=== PATIENT | female | born 1955 | race African-American/Black ===

== ENCOUNTER → 2018-02-21 | Outpatient (CLI) | payer MEDICARE ==
[~2018-02-21] MED LIST: LISI2.5T PO; METF500T4 PO
[2018-02-21 09:59] LABS: INTERNATIONAL NORMALIZED RATIO 0.97 (0.93-1.1); PROTHROMBIN TIME 10.1 Seconds (9.6-11.5)
[2018-02-21 10:02] LABS: ALANINE AMINOTRANSFERASE 24 U/L (12-78); ALBUMIN 3.7 g/dL (3.4-5.0); ANION GAP 4 mmol/L (5-15); CALCIUM 8.7 mg/dL (8.5-10.1); CHLORIDE 111 mmol/L (98-107)
[2018-02-21 10:04] LABS: ALKALINE PHOSPHATASE 129 U/L (45-117); BILIRUBIN,TOTAL 0.5 mg/dL (0.2-1.0); TOTAL PROTEIN 7.5 g/dL (6.4-8.2)
[2018-02-21 10:05] LABS: MICROSCOPIC AUTO
[2018-02-21 10:07] LABS: BASOPHILS # (AUTO) 0.06 x10^3/uL (0-0.1); BASOPHILS % (AUTO) 1 % (0-1); EOSINOPHILS % (AUTO) 4 % (1-7); LYMPHOCYTES # (AUTO) 2.53 x10^3/uL (1-3.4); LYMPHOCYTES % (AUTO) 32 % (22-44); MD NO; MEAN CORPUSCULAR HEMOGLOBIN 27.3 pg (27.0-34.8); MEAN CORPUSCULAR HGB CONC 32.7 g/dL (32.4-35.8); MEAN CORPUSCULAR VOLUME 83.3 fL (80-100); MEAN PLATELET VOLUME 10.1 fL (7.4-10.4); MONOCYTES # (AUTO) 0.31 x10^3/uL (0.2-0.8); MONOCYTES % (AUTO) 4 % (2-9); NEUTROPHILS # (AUTO) 4.64 x10^3/uL (1.8-6.8); NEUTROPHILS % (AUTO) 59 % (42-75); PLATELET COUNT 224 x10^3/uL (130-400); RED CELL DISTRIBUTION WIDTH 14.2 % (9.6-15.2)
[2018-02-21 10:45] LABS: CULTURE INDICATED? YES
== END | disposition home or self-care (01) ==
LOC: STAR 08:45
PROVIDERS: ATTEND Orthopaedic Surgery Orthopaedic Surgery of the Spine
DX: Z01.818 Encounter for other preprocedural examination (principal); R94.31 Abnormal electrocardiogram [ECG] [EKG]
CPT/HCPCS: 36415; 71046; 80053; 81001; 85025; 85610; 85730; 87086; 93005

== ENCOUNTER 2018-03-07 07:30 | Inpatient (IN) | payer MEDICARE ==
[~2018-03-07] VITALS: Ht 157.5 cm; Wt 87.8 kg
[~2018-03-07 07:30] MED LIST changes: +BUPIVACAINE/PF 0.25% ONE; +EPINEPHRINE 1 MG/ML, 1ML ONE; +LIDOCAINE/PF 0.5% ,50ML ONE; +THROMBIN 5,000 UNIT VIAL TP ONE; +VANCOMYCIN 1,000 MG ONE
[2018-03-07] MEDS ORDERED: FENTANYL PF 100 MCG/2ML ONE ×2 (09:15→13:51)
[2018-03-07] MEDS ORDERED: MIDAZOLAM 1 MG/ML, 2ML ONE (09:15)
[2018-03-07] MEDS ORDERED: ONDANSETRON ODT 8 MG PO ONE (09:30)
[2018-03-07] MEDS ORDERED: OXYcodone IR 5MG TABLET PO ONE (09:30)
[2018-03-07] MEDS ORDERED: DIAZEPAM 5 MG TABLET PO ONE (09:30)
[2018-03-07] MEDS ORDERED: ACETAMINOPHEN 500 MG TABLET PO ONE (09:30)
[2018-03-07] MEDS ORDERED: GABAPENTIN 300 MG CAPSULE PO ONE (09:30)
[2018-03-07] MEDS ORDERED: FAMOTIDINE 20 MG TABLET PO ONE (09:30)
[2018-03-07] MEDS ORDERED: LACTATED RINGERS 1,000 ML IV SCH (09:34)
[2018-03-07] MEDS ORDERED: LIDOCAINE/PF 0.5% ,50ML INFIL ONE (11:16)
[2018-03-07] MEDS ORDERED: VANCOMYCIN 1,000 MG ONE (11:50)
[2018-03-07] MEDS ORDERED: DEXAMETHASONE 4 MG/ML, 1ML ONE (12:34)
[2018-03-07] MEDS ORDERED: GLYCOPYRROLATE 0.2MG/1ML, 5ML ONE (12:34)
[2018-03-07] MEDS ORDERED: NEOSTIGMINE 1 MG/ML, 10ML ONE (12:34)
[2018-03-07] MEDS ORDERED: SUCCINYLCHOLINE 20 MG/ML, 10ML ONE (12:34)
[2018-03-07] MEDS ORDERED: CEFAZOLIN 1,000 MG ONE (12:34)
[2018-03-07] MEDS ORDERED: PROPOFOL 10 MG/ML, 20ML ONE (12:34)
[2018-03-07] MEDS ORDERED: HALOPERIDOL 5 MG/ML IV PRN (13:00)
[2018-03-07] MEDS ORDERED: LABETALOL 5MG/ML, 20ML IV PRN ×2 (13:00→19:00)
[2018-03-07] MEDS ORDERED: ALBUTEROL SULFATE 2.5 MG/3 ML NPPB PRN (13:00)
[2018-03-07] MEDS ORDERED: HYDROcodone/APAP 7.5-325MG/15ML UDC PO PRN (13:00)
[2018-03-07] MEDS ORDERED: PROMETHAZINE 25 MG/ML, 1ML IV PRN (13:00)
[2018-03-07] MEDS ORDERED: DIAZEPAM 5 MG/ML, 2ML IVPush PRN (13:00)
[2018-03-07] MEDS ORDERED: ONDANSETRON ODT 8 MG PO PRN (13:00)
[2018-03-07] MEDS ORDERED: EPHEDRINE 50 MG/ML, 1ML IVPush PRN (13:00)
[2018-03-07] MEDS ORDERED: OXYcodone 5 MG/5 ML ORAL.SOL UDC PO PRN (13:00)
[2018-03-07] MEDS ORDERED: HYDROmorphone 1 MG/ML, 1ML IV PRN (13:00)
[2018-03-07] MEDS ORDERED: MEPERIDINE/PF 25MG/0.5ML IVPush PRN (13:00)
[2018-03-07] MEDS ORDERED: MIDAZOLAM 1 MG/ML, 2ML IV PRN (13:00)
[2018-03-07] MEDS ORDERED: hydrALAzine 20 MG/ML, 1ML IV PRN (13:00)
[2018-03-07] MEDS: FENTANYL PF 100 MCG/2ML IV PRN ×2 (13:53→14:10)
[2018-03-07] MEDS ORDERED: ALBUTEROL SULFATE 2.5 MG/3 ML ONE (14:06)
[2018-03-07] MEDS ORDERED: HALOPERIDOL 5 MG/ML ONE (14:23)
[2018-03-07] MEDS ORDERED: hydrALAzine 20 MG/ML, 1ML ONE (14:26)
[2018-03-07] MEDS ORDERED: ROCURONIUM 10 MG/ML,10ML ONE (16:18)
[2018-03-07] MEDS ORDERED: ONDANSETRON 2MG/ML, 2ML IV PRN (19:00)
[2018-03-07] MEDS ORDERED: morphine SULFATE 10 MG/ML, 1ML IV PRN (19:00)
[2018-03-07] MEDS ORDERED: MAGNESIUM HYDROXIDE 8%, 30ML UDC PO PRN (19:00)
[2018-03-07] MEDS ORDERED: PROMETHAZINE 25 MG/ML, 1ML IM PRN (19:00)
[2018-03-07] MEDS ORDERED: NS + 20MEQ KCL 1,000 ML IV SCH (19:00)
[2018-03-07] MEDS ORDERED: BISACODYL 10 MG SUPP PR PRN (19:00)
[2018-03-07] MEDS: CEFAZOLIN 1,000 MG in SODIUM CHLORIDE 0.9% 50 ML IVPB SCH (20:22)
[2018-03-07 22:25] VITALS: BP 147/69
[2018-03-07 23:31] VITALS: BP 111/61
[2018-03-08 02:00] VITALS: BP 135/74
[2018-03-08] MEDS: CEFAZOLIN 1,000 MG in SODIUM CHLORIDE 0.9% 50 ML IVPB SCH (03:48)
[2018-03-08 06:01] LABS: BASOPHILS # (AUTO) 0.01 x10^3/uL (0-0.1); BASOPHILS % (AUTO) 0 % (0-1); EOSINOPHILS % (AUTO) 0 % (1-7); LYMPHOCYTES # (AUTO) 1.69 x10^3/uL (1-3.4); LYMPHOCYTES % (AUTO) 12 % (22-44); MD NO; MEAN CORPUSCULAR HEMOGLOBIN 27.2 pg (27.0-34.8); MEAN CORPUSCULAR HGB CONC 32.6 g/dL (32.4-35.8); MEAN CORPUSCULAR VOLUME 83.6 fL (80-100); MONOCYTES # (AUTO) 0.62 x10^3/uL (0.2-0.8); MONOCYTES % (AUTO) 4 % (2-9); NEUTROPHILS # (AUTO) 12.05 x10^3/uL (1.8-6.8); NEUTROPHILS % (AUTO) 84 % (42-75); PLATELET COUNT 207 x10^3/uL (130-400); RED BLOOD COUNT 4.23 x10^6/uL (3.82-5.3); RED CELL DISTRIBUTION WIDTH 13.5 % (9.6-15.2)
[2018-03-08 06:10] LABS: ANION GAP 8 mmol/L (5-15); CALCIUM 8.5 mg/dL (8.5-10.1); CHLORIDE 110 mmol/L (98-107); CREATININE 0.63 mg/dL (0.55-1.02)
[2018-03-08 07:13] VITALS: BP 125/71
[2018-03-08] MEDS: SENNA/DOCUSATE TABLET PO SCH (07:43)
[2018-03-08] MEDS: metFORMIN 500 MG TABLET PO SCH ×2 (07:43→18:22)
[2018-03-08] MEDS: METHOCARBAMOL 500 MG TABLET PO PRN ×2 (07:43→15:52)
[2018-03-08] MEDS: LISINOPRIL 5 MG TABLET PO SCH (07:44)
[2018-03-08] MEDS: NS + 20MEQ KCL 1,000 ML IV SCH ×2 (10:04→20:04)
[2018-03-08] MEDS: HYDROcodone/APAP 5/325 TABLET PO PRN ×3 (10:49→20:27)
[2018-03-08] MEDS: MAGNESIUM HYDROXIDE 8%, 30ML UDC PO SCH (11:49)
[2018-03-08 14:01] VITALS: BP 112/64
[2018-03-08 20:00] VITALS: BP 122/64
[2018-03-09] MEDS: HYDROcodone/APAP 5/325 TABLET PO PRN ×2 (00:50→04:58)
[2018-03-09 02:00] VITALS: BP 105/66
[2018-03-09 04:55] LABS: BASOPHILS # (AUTO) 0.03 x10^3/uL (0-0.1); BASOPHILS % (AUTO) 0 % (0-1); EOSINOPHILS # (AUTO) 0.09 x10^3/uL (0-0.4); EOSINOPHILS % (AUTO) 1 % (1-7); LYMPHOCYTES # (AUTO) 2.89 x10^3/uL (1-3.4); LYMPHOCYTES % (AUTO) 28 % (22-44); MD NO; MEAN CORPUSCULAR HEMOGLOBIN 28.2 pg (27.0-34.8); MEAN CORPUSCULAR HGB CONC 33.4 g/dL (32.4-35.8); MEAN CORPUSCULAR VOLUME 84.3 fL (80-100); MEAN PLATELET VOLUME 10.1 fL (7.4-10.4); MONOCYTES # (AUTO) 0.66 x10^3/uL (0.2-0.8); MONOCYTES % (AUTO) 6 % (2-9); NEUTROPHILS # (AUTO) 6.81 x10^3/uL (1.8-6.8); NEUTROPHILS % (AUTO) 65 % (42-75); PLATELET COUNT 186 x10^3/uL (130-400); RED CELL DISTRIBUTION WIDTH 14.4 % (9.6-15.2)
[2018-03-09 05:03] LABS: ANION GAP 5 mmol/L (5-15); CALCIUM 7.8 mg/dL (8.5-10.1); CHLORIDE 111 mmol/L (98-107)
[2018-03-09] MEDS: NS + 20MEQ KCL 1,000 ML IV SCH ×2 (06:03→16:04)
[2018-03-09] MEDS ORDERED: ONDANSETRON ODT 4 MG ONE (07:37)
[2018-03-09] MEDS: metFORMIN 500 MG TABLET PO SCH ×2 (07:38→17:16)
[2018-03-09] MEDS: METHOCARBAMOL 500 MG TABLET PO PRN ×2 (07:39→14:04)
[2018-03-09] MEDS: SENNA/DOCUSATE TABLET PO SCH (07:39)
[2018-03-09 07:42] VITALS: BP 110/70
[2018-03-09] MEDS: LISINOPRIL 5 MG TABLET PO SCH (07:42)
[2018-03-09 07:54] VITALS: BP 138/77
[2018-03-09] MEDS ORDERED: ONDANSETRON ODT 4 MG PO PRN (08:00)
[2018-03-09] MEDS: HYDROcodone/APAP 10/325 MG TABLET PO PRN ×3 (09:19→17:16)
[2018-03-09] MEDS: MAGNESIUM HYDROXIDE 8%, 30ML UDC PO SCH (09:19)
[2018-03-09] MEDS ORDERED: MAGNESIUM CITRATE 300ML ORAL SOL PO ONE (12:30)
[2018-03-09] MEDS ORDERED: CEPHALEXIN 250 MG CAPSULE ONE ×2 (13:08→21:01)
[2018-03-09] MEDS: CEPHALEXIN 500 MG CAPSULE PO SCH ×2 (13:16→20:30)
[2018-03-09 14:06] VITALS: BP 132/70
[2018-03-09] MEDS ORDERED: OXYC-302 PO (16:51)
[2018-03-09] MEDS ORDERED: METH500T7 PO (16:52)
[2018-03-09] MEDS ORDERED: CEPH-368 PO (16:53)
[2018-03-09] MEDS ORDERED: MAGNESIUM CITRATE 300ML ORAL SOL ONE (16:54)
== END 2018-03-09 21:15 | disposition home health service (06) | DRG 460 ==
LOC: ORIP 08:17 → 4NOR 15:23
PROVIDERS: ADMIT Orthopaedic Surgery Orthopaedic Surgery of the Spine; ATTEND Orthopaedic Surgery Orthopaedic Surgery of the Spine
PROC: 0SG00K1 Fusion of Lumbar Vertebral Joint with Nonautologous Tissue Substitute, Posterior Approach, Posterior Column, Open Approach (ICD-10-PCS; principal; 2018-03-07 10:30)
DX: M48.061 Spinal stenosis, lumbar region without neurogenic claudication (principal); I10 Essential (primary) hypertension; M43.16 Spondylolisthesis, lumbar region
CPT/HCPCS: 36415; 72100; 76001; 80048; 82962; 85025; 94640; C1713; J0171; J0690; J1100; J2001; J2250; J2270; J2704; J2710; J3010; J3370; J3480; J3490; J7613; Q0162; J0330; J0360; J1630; J7120

== ENCOUNTER 2019-01-01 10:30 | Inpatient (IN) | payer MEDICARE, MEDICAID ==
[~2019-01-01] VITALS: Ht 157.5 cm; Wt 76.9 kg
[~2019-01-01 10:30] MED LIST changes: -BUPIVACAINE/PF 0.25% ONE; +CEPH-368 PO; -EPINEPHRINE 1 MG/ML, 1ML ONE; -LIDOCAINE/PF 0.5% ,50ML ONE; +METF500T17 PO; -METF500T4 PO; +METH500T7 PO; +OXYC-302 PO; -THROMBIN 5,000 UNIT VIAL TP ONE; -VANCOMYCIN 1,000 MG ONE
[2019-01-01] MEDS ORDERED: LISI5TAB7 PO (12:23)
[2019-01-01] MEDS ORDERED: METH500T7 PO (12:30)
[2019-01-01 12:53] LABS: MICROSCOPIC NOT IND
[2019-01-01 12:55] LABS: CULTURE INDICATED? NO
[2019-01-01 13:02] LABS: BASOPHILS # (AUTO) 0.03 x10^3/uL (0-0.1); BASOPHILS % (AUTO) 0 % (0-1); EOSINOPHILS # (AUTO) 0.16 x10^3/uL (0-0.4); EOSINOPHILS % (AUTO) 2 % (1-7); LYMPHOCYTES # (AUTO) 2.61 x10^3/uL (1-3.4); LYMPHOCYTES % (AUTO) 34 % (22-44); MD NO; MEAN CORPUSCULAR HEMOGLOBIN 27.6 pg (27.0-34.8); MEAN CORPUSCULAR VOLUME 83.5 fL (80-100); MEAN PLATELET VOLUME 9.6 fL (7.4-10.4); MONOCYTES # (AUTO) 0.35 x10^3/uL (0.2-0.8); MONOCYTES % (AUTO) 5 % (2-9); NEUTROPHILS # (AUTO) 4.59 x10^3/uL (1.8-6.8); NEUTROPHILS % (AUTO) 59 % (42-75); PLATELET COUNT 293 x10^3/uL (130-400); RED BLOOD COUNT 5.52 x10^6/uL (3.82-5.3); RED CELL DISTRIBUTION WIDTH 14.4 % (9.6-15.2)
[2019-01-01 13:10] LABS: ALANINE AMINOTRANSFERASE 22 U/L (12-78); CHLORIDE 109 mmol/L (98-107)
[2019-01-01 13:19] LABS: ANION GAP 6 mmol/L (5-15); CALCIUM 9.4 mg/dL (8.5-10.1); CREATININE 0.67 mg/dL (0.55-1.02); INTERNATIONAL NORMALIZED RATIO 0.98 (0.93-1.1); PROTHROMBIN TIME 10.3 Seconds (9.6-11.5)
[2019-01-01 13:20] LABS: ALKALINE PHOSPHATASE 138 U/L (45-117); BILIRUBIN,TOTAL 0.4 mg/dL (0.2-1.0)
[2019-01-04] MEDS ORDERED: LACTATED RINGERS 1,000 ML IV SCH (08:28)
[2019-01-04] MEDS ORDERED: LIDOCAINE/PF 0.5% ,50ML ONE (09:25)
[2019-01-04] MEDS ORDERED: VANCOMYCIN 500 MG ONE (09:25)
[2019-01-04] MEDS ORDERED: VANCOMYCIN 1,000 MG ONE ×2 (09:25→10:59)
[2019-01-04] MEDS ORDERED: THROMBIN 20,000 UNIT VIAL TP ONE ×2 (09:25→11:14)
[2019-01-04] MEDS ORDERED: TRIAMCINOLONE ACETONIDE 40 MG/ML, 1ML ONE (09:25)
[2019-01-04] MEDS ORDERED: EPINEPHRINE 1 MG/ML, 1ML ONE (09:26)
[2019-01-04 09:48] VITALS: BP 151/87
[2019-01-04] MEDS ORDERED: FENTANYL PF 250 MCG/5ML ONE (10:00)
[2019-01-04] MEDS ORDERED: PROPOFOL 50 ML ONE ×3 (10:00→12:11)
[2019-01-04] MEDS ORDERED: MIDAZOLAM 1 MG/ML, 2ML ONE (10:00)
[2019-01-04] MEDS ORDERED: ONDANSETRON 2MG/ML, 2ML ONE (10:40)
[2019-01-04] MEDS ORDERED: CEFAZOLIN 1,000 MG ONE (10:40)
[2019-01-04] MEDS ORDERED: DEXAMETHASONE 4 MG/ML, 5ML ONE (10:40)
[2019-01-04] MEDS ORDERED: SUCCINYLCHOLINE 20 MG/ML, 10ML ONE (10:40)
[2019-01-04] MEDS ORDERED: LIDOCAINE 0.5%-EPI 1:200K, 50ML INFIL ONE (11:14)
[2019-01-04] MEDS ORDERED: VANCOMYCIN 1,000 MG IM ONE (11:14)
[2019-01-04] MEDS ORDERED: MEPERIDINE/PF 25MG/0.5ML IVPush PRN (11:30)
[2019-01-04] MEDS ORDERED: PROMETHAZINE 12.5 MG SUPP PR PRN (11:30)
[2019-01-04] MEDS ORDERED: MORPHINE SULFATE 4 MG/ML, 1ML IVPush PRN (11:30)
[2019-01-04] MEDS ORDERED: DIAZEPAM 5 MG/ML, 2ML IVPush PRN (11:30)
[2019-01-04] MEDS ORDERED: PROMETHAZINE 25 MG SUPP PR PRN (11:30)
[2019-01-04] MEDS ORDERED: MIDAZOLAM 1 MG/ML, 2ML IV PRN (11:30)
[2019-01-04] MEDS ORDERED: DIPHENHYDRAMINE 50 MG/ML, 1ML IVPush PRN (11:30)
[2019-01-04] MEDS ORDERED: ONDANSETRON ODT 8 MG PO PRN (11:30)
[2019-01-04] MEDS ORDERED: PROMETHAZINE 25 MG/ML, 1ML IV PRN (11:30)
[2019-01-04] MEDS ORDERED: EPHEDRINE 50 MG/ML, 1ML IVPush PRN (11:30)
[2019-01-04] MEDS ORDERED: ONDANSETRON 2MG/ML, 2ML IV PRN ×2 (11:30→15:30)
[2019-01-04] MEDS ORDERED: EPHEDRINE 50 MG/ML, 1ML IM PRN (11:30)
[2019-01-04] MEDS ORDERED: FENTANYL PF 100 MCG/2ML ONE ×2 (12:52→13:43)
[2019-01-04] MEDS ORDERED: HYDROcodone/APAP 7.5-325MG/15ML UDC ONE (13:43)
[2019-01-04] MEDS: FENTANYL PF 100 MCG/2ML IV PRN ×2 (13:50→14:05)
[2019-01-04] MEDS ORDERED: HYDROmorphone 1 MG/ML, 1ML AMP ONE (14:15)
[2019-01-04] MEDS: HYDROmorphone 2 MG/ML, 1ML IVPush PRN ×2 (14:20→14:44)
[2019-01-04] MEDS ORDERED: HYDROcodone/APAP 7.5-325MG/15ML UDC PO PRN (14:30)
[2019-01-04] MEDS ORDERED: MAGNESIUM HYDROXIDE 8%, 30ML UDC PO PRN (15:30)
[2019-01-04] MEDS ORDERED: METHOCARBAMOL 750 MG in DEXTROSE 5% 100 ML IV SCH (15:30)
[2019-01-04] MEDS ORDERED: METHOCARBAMOL 1,000 MG in DEXTROSE 5% 100 ML IV ONE (15:30)
[2019-01-04] MEDS ORDERED: PROMETHAZINE 25 MG/ML, 1ML IM PRN (15:30)
[2019-01-04] MEDS ORDERED: HYDROcodone/APAP 5/325 TABLET PO PRN (15:30)
[2019-01-04] MEDS ORDERED: BISACODYL 10 MG SUPP PR PRN (15:30)
[2019-01-04] MEDS: METHOCARBAMOL 750 MG TABLET PO SCH ×2 (15:30→18:47)
[2019-01-04] MEDS ORDERED: METHOCARBAMOL 750 MG TABLET PO PRN (15:30)
[2019-01-04] MEDS: NS + 20MEQ KCL 1,000 ML IV SCH (16:05)
[2019-01-04] MEDS: metFORMIN 500 MG TABLET PO SCH (17:24)
[2019-01-04] MEDS: CEFAZOLIN PMX 1GM/50ML 50 ML IVPB SCH (18:46)
[2019-01-04 20:01] VITALS: BP 154/99
[2019-01-04] MEDS: HYDROcodone/APAP 10/325 MG TABLET PO PRN (21:41)
[2019-01-04] MEDS: METHOCARBAMOL 750 MG in DEXTROSE 5% 100 ML IV SCH (23:42)
[2019-01-04 23:46] VITALS: BP 153/89
[2019-01-05] MEDS: CEFAZOLIN PMX 1GM/50ML 50 ML IVPB SCH (02:36)
[2019-01-05 03:25] VITALS: BP 155/88
[2019-01-05] MEDS: NS + 20MEQ KCL 1,000 ML IV SCH ×2 (06:00→16:00)
[2019-01-05] MEDS: METHOCARBAMOL 750 MG TABLET PO SCH ×2 (07:16→16:57)
[2019-01-05] MEDS: METHOCARBAMOL 750 MG in DEXTROSE 5% 100 ML IV SCH ×3 (08:18→23:41)
[2019-01-05 08:26] VITALS: BP 155/92
[2019-01-05] MEDS: metFORMIN 500 MG TABLET PO SCH ×2 (09:44→16:57)
[2019-01-05] MEDS: PANTOPRAZOLE 40 MG IV IVPush SCH ×2 (09:44→20:35)
[2019-01-05] MEDS: SENNA/DOCUSATE TABLET PO SCH (09:44)
[2019-01-05] MEDS: LISINOPRIL 5 MG TABLET PO SCH (09:44)
[2019-01-05] MEDS: DEXAMETHASONE 4 MG/ML, 1ML IV SCH ×3 (11:50→23:22)
[2019-01-05 14:18] VITALS: BP 137/81
[2019-01-05] MEDS: HYDROcodone/APAP 10/325 MG TABLET PO PRN ×2 (14:48→23:30)
[2019-01-05 20:00] VITALS: BP 124/77
[2019-01-06] MEDS: METHOCARBAMOL 750 MG TABLET PO SCH ×2 (00:17→08:22)
[2019-01-06] MEDS: NS + 20MEQ KCL 1,000 ML IV SCH ×2 (02:00→12:00)
[2019-01-06 02:46] VITALS: BP 132/77
[2019-01-06 07:43] VITALS: BP 124/77
[2019-01-06] MEDS: METHOCARBAMOL 750 MG in DEXTROSE 5% 100 ML IV SCH (07:57)
[2019-01-06] MEDS: metFORMIN 500 MG TABLET PO SCH (08:22)
[2019-01-06] MEDS: SENNA/DOCUSATE TABLET PO SCH (08:22)
[2019-01-06] MEDS: LISINOPRIL 5 MG TABLET PO SCH (08:23)
[2019-01-06] MEDS: PANTOPRAZOLE 40 MG IV IVPush SCH (08:23)
[2019-01-06] MEDS ORDERED: HYDR-3245 PO (11:31)
[2019-01-06 13:17] VITALS: BP 144/64
[2019-01-06] MEDS ORDERED: METHOCARBAMOL 750 MG TABLET PO PRN (16:00)
== END 2019-01-06 13:50 | disposition home or self-care (01) | DRG 472 ==
LOC: ORIP 01-04 08:07 → EDSTATUS 01-04 10:00 → 4NOR 01-04 15:01
PROVIDERS: ADMIT Orthopaedic Surgery Orthopaedic Surgery of the Spine; ATTEND Orthopaedic Surgery Orthopaedic Surgery of the Spine
PROC: 0RB30ZZ Excision of Cervical Vertebral Disc, Open Approach (ICD-10-PCS; 2019-01-04)
PROC: 0RG20K0 Fusion of 2 or more Cervical Vertebral Joints with Nonautologous Tissue Substitute, Anterior Approach, Anterior Column, Open Approach (ICD-10-PCS; principal; 2019-01-04 10:00)
DX: M48.02 Spinal stenosis, cervical region (principal); M50.022 Cervical disc disorder at C5-C6 level with myelopathy; M50.023 Cervical disc disorder at C6-C7 level with myelopathy; M50.123 Cervical disc disorder at C6-C7 level with radiculopathy; M50.122 Cervical disc disorder at C5-C6 level with radiculopathy; Z88.6 Allergy status to analgesic agent
CPT/HCPCS: 36415; 71046; 72040; 80053; 81003; 82962; 85025; 85610; 85730; 86850; 86900; 93005; 95938; 95941; C1713; G0378; J0171; J0690; J1100; J1170; J2001; J2250; J2405; J2704; J3010; J3301; J3370; J3480; C1762; C9113; J0330; J2800; J7120

== ENCOUNTER → 2020-08-07 | Outpatient (CLI) | payer MEDICAID, MEDICARE ==
[~2020-08-07] MED LIST changes: +ACET-1600 PO; +ASPI81TA14 PO; +HYDR-3245 PO; +LISI5TAB7 PO; +vitamin D PO; +vitamin b PO
[2020-08-07 12:46] LABS: INTERNATIONAL NORMALIZED RATIO 1.01 (0.93-1.1); PROTHROMBIN TIME 10.7 Seconds (9.6-11.5)
[2020-08-07 12:48] LABS: ALANINE AMINOTRANSFERASE 15 U/L (12-78); ALBUMIN 4.2 g/dL (3.4-5.0); ANION GAP 7 mmol/L (5-15); CALCIUM 9.8 mg/dL (8.5-10.1); CHLORIDE 109 mmol/L (98-107); CREATININE 0.72 mg/dL (0.55-1.02)
[2020-08-07 12:51] LABS: ALKALINE PHOSPHATASE 136 U/L (45-117); BILIRUBIN,TOTAL 0.5 mg/dL (0.2-1.0); TOTAL PROTEIN 8.1 g/dL (6.4-8.2)
[2020-08-07 12:53] LABS: BASOPHILS % (AUTO) 1 % (0-1); EOSINOPHILS % (AUTO) 2 % (1-7); LYMPHOCYTES % (AUTO) 34 % (22-44); MEAN CORPUSCULAR HEMOGLOBIN 27.2 pg (27.0-34.8); MEAN CORPUSCULAR HGB CONC 32.4 g/dL (32.4-35.8); MONOCYTES % (AUTO) 6 % (2-9); NEUTROPHILS % (AUTO) 57 % (42-75); PLATELET COUNT 231 x10^3/uL (130-400); RED BLOOD COUNT 5.34 x10^6/uL (3.82-5.3); RED CELL DISTRIBUTION WIDTH 13.7 % (9.6-15.2)
[2020-08-07 13:00] LABS: MD NO
[2020-08-07 13:10] LABS: MICROSCOPIC INDICATED
== END | disposition home or self-care (01) ==
LOC: STAR 10:48
PROVIDERS: ATTEND Orthopaedic Surgery Orthopaedic Surgery of the Spine
DX: Z01.818 Encounter for other preprocedural examination (principal); Z20.828 Contact with and (suspected) exposure to other viral communicable diseases; M51.26 Other intervertebral disc displacement, lumbar region; Z79.899 Other long term (current) drug therapy
CPT/HCPCS: 36415; 71046; 80053; 81001; 85025; 85610; 85730; 87086; 87635; 93005

== ENCOUNTER → 2020-09-03 | Outpatient (CLI) | payer MEDICARE, MEDICAID ==
[~2020-09-03] MED LIST changes: +HYDR-3237 PO
== END | disposition home or self-care (01) ==
LOC: STAR 10:56
PROVIDERS: ATTEND Anesthesiology
DX: Z20.828 Contact with and (suspected) exposure to other viral communicable diseases (principal)
CPT/HCPCS: 87635

== ENCOUNTER 2020-09-08 07:39 | Observation (INO) | payer MEDICARE, MEDICAID ==
[~2020-09-08] VITALS: Ht 157.5 cm; Wt 79.7 kg
[2020-09-08] MEDS ORDERED: CHLORHEXIDINE 15 ML UDC MM ONE (08:30)
[2020-09-08] MEDS ORDERED: CHLORHEXIDINE 15 ML UDC ONE (08:35)
[2020-09-08] MEDS ORDERED: MIDAZOLAM 1 MG/ML, 2ML ONE (08:42)
[2020-09-08] MEDS ORDERED: FENTANYL PF 250 MCG/5ML ONE (08:43)
[2020-09-08] MEDS ORDERED: LACTATED RINGERS 1,000 ML IV SCH (09:00)
[2020-09-08 09:32] VITALS: BP 176/98
[2020-09-08] MEDS ORDERED: LIDOCAINE/PF 0.5% ,50ML ONE (09:42)
[2020-09-08] MEDS ORDERED: BUPIVACAINE/PF 0.25% ONE (09:42)
[2020-09-08] MEDS ORDERED: EPINEPHRINE 1 MG/ML, 1ML ONE (09:42)
[2020-09-08] MEDS ORDERED: VANCOMYCIN 1,000 MG ONE (09:42)
[2020-09-08] MEDS ORDERED: NEOSTIGMINE 1 MG/ML, 10ML ONE (10:28)
[2020-09-08] MEDS ORDERED: DEXAMETHASONE 4 MG/ML, 1ML ONE (10:28)
[2020-09-08] MEDS ORDERED: GLYCOPYRROLATE 0.2MG/1ML, 5ML ONE (10:28)
[2020-09-08] MEDS ORDERED: PROPOFOL 10 MG/ML, 20ML ONE (10:28)
[2020-09-08] MEDS ORDERED: ROCURONIUM 10MG/ML,5ML ONE (10:28)
[2020-09-08] MEDS ORDERED: CEFAZOLIN 1,000 MG ONE (10:28)
[2020-09-08] MEDS ORDERED: ONDANSETRON 2MG/ML, 2ML ONE (10:28)
[2020-09-08] MEDS ORDERED: PROMETHAZINE 25 MG/ML, 1ML IVPush PRN (10:30)
[2020-09-08] MEDS ORDERED: METHOCARBAMOL 1,000 MG in DEXTROSE 5% 100 ML IV PRN (10:30)
[2020-09-08] MEDS ORDERED: HYDROmorphone 1 MG/ML, 1ML INJ IVPush PRN (10:30)
[2020-09-08] MEDS ORDERED: ACETAMINOPHEN 325 MG TABLET PO PRN (10:30)
[2020-09-08] MEDS ORDERED: DIAZEPAM 5 MG/ML, 2ML IVPush PRN (10:30)
[2020-09-08] MEDS ORDERED: ONDANSETRON 2MG/ML, 2ML IVPush PRN ×2 (10:30→19:30)
[2020-09-08] MEDS ORDERED: MEPERIDINE/PF 25MG/0.5ML IVPush PRN (10:30)
[2020-09-08] MEDS ORDERED: DIPHENHYDRAMINE 50 MG/ML, 1ML IVPush PRN (10:30)
[2020-09-08] MEDS ORDERED: FENTANYL PF 100 MCG/2ML ONE (12:27)
[2020-09-08] MEDS: FENTANYL PF 100 MCG/2ML IV PRN ×2 (12:30→13:03)
[2020-09-08] MEDS ORDERED: HYDROcodone/APAP 7.5-325MG/15ML UDC ONE (12:51)
[2020-09-08] MEDS ORDERED: HYDROcodone/APAP 7.5-325MG/15ML UDC PO PRN (13:00)
[2020-09-08] MEDS: HYDROcodone/APAP 10/325 MG TABLET PO PRN (19:15)
[2020-09-08] MEDS ORDERED: MORPHINE SULFATE 4 MG/ML, 1ML IVPush PRN (19:30)
[2020-09-08] MEDS ORDERED: DIAZEPAM 5 MG TABLET PO PRN (19:30)
[2020-09-08] MEDS ORDERED: DIAZEPAM 5 MG/ML, 10ML VIAL IV PRN (19:30)
[2020-09-08 20:44] VITALS: BP 160/89
[2020-09-08] MEDS ORDERED: METHOCARBAMOL 750 MG TABLET PO PRN (21:00)
[2020-09-08] MEDS ORDERED: ACETAMINOPHEN 500 MG TABLET PO PRN (21:00)
[2020-09-08] MEDS: SODIUM CHLORIDE 0.45% 1,000 ML IV SCH (21:30)
[2020-09-09 00:12] VITALS: BP 157/84
[2020-09-09] MEDS: HYDROcodone/APAP 10/325 MG TABLET PO PRN ×2 (00:15→06:25)
[2020-09-09 04:30] VITALS: BP 143/82
[2020-09-09] MEDS: SODIUM CHLORIDE 0.45% 1,000 ML IV SCH (07:30)
[2020-09-09] MEDS ORDERED: metFORMIN 500 MG TABLET PO SCH (08:00)
[2020-09-09 08:18] VITALS: BP 126/74
[2020-09-09] MEDS ORDERED: LISINOPRIL 5 MG TABLET PO SCH (09:00)
[2020-09-09] MEDS ORDERED: HYDR-3246 PO (11:19)
[2020-09-09] MEDS ORDERED: CEPH-368 PO (11:20)
[2020-09-09] MEDS ORDERED: ONDA4TAB7 PO (11:21)
== END 2020-09-09 12:32 | disposition home or self-care (01) ==
LOC: OUT 07:39 → 4NE 19:15 → OUT 20:55 → DCLOUNGE 09-09 12:27
PROVIDERS: ADMIT Orthopaedic Surgery Orthopaedic Surgery of the Spine; ATTEND Orthopaedic Surgery Orthopaedic Surgery of the Spine
DX: M48.061 Spinal stenosis, lumbar region without neurogenic claudication (principal); M51.26 Other intervertebral disc displacement, lumbar region; I10 Essential (primary) hypertension; E11.9 Type 2 diabetes mellitus without complications; Z90.710 Acquired absence of both cervix and uterus; Z85.42 Personal history of malignant neoplasm of other parts of uterus; Z79.899 Other long term (current) drug therapy
CPT/HCPCS: 63047; 63048; 72100; 82962; G0378; J0171; J0690; J1100; J2001; J2250; J2405; J2704; J2710; J3010; J3370; J7120